=== PATIENT | male | born 1965 | race Caucasian/White ===

== ENCOUNTER 2017-11-01 16:10 | Inpatient (IN) | payer BC, MEDICARE | END 2017-11-08 16:12 | disposition home or self-care (01) | DRG 433 | LOC: D.MS 16:10 | DX: K70.40 Alcoholic hepatic failure without coma (principal); N17.9 Acute kidney failure, unspecified; E72.20 Disorder of urea cycle metabolism, unspecified; F17.203 Nicotine dependence unspecified, with withdrawal; E46 Unspecified protein-calorie malnutrition; R16.0 Hepatomegaly, not elsewhere classified; I10 Essential (primary) hypertension; K21.9 Gastro-esophageal reflux disease without esophagitis; F41.8 Other specified anxiety disorders; K70.10 Alcoholic hepatitis without ascites; F10.10 Alcohol abuse, uncomplicated ==

== ENCOUNTER → 2017-11-22 14:39 | Outpatient (CLI) | payer BC, MEDICARE ==
[2017-11-02 15:14] VITALS: BMI 42.2
[~2017-11-22 14:39] MED LIST: ATIVAN1 MG PO; CHRONULAC30 ML PO; COZAAR100 MG PO; HYDROCODONE-APA1 TAB PO; NICODERM C1 PATCH .3 TRANSDERM; PAXIL20 MG PO; PREDNISONE20 MG PO
[2017-11-22 15:07] LABS: BASOPHILS 0 % (0-2); EOSINOPHILS 0.1 % (0-7); HEMATOCRIT 36.8 % (42.0-54.0); HEMOGLOBIN 12.8 g/dL (13.5-17.5); IMMATURE GRANULOCYTES 0.4 % (0-5); LYMPHOCYTES 3.6 % (15-50); MCH 36.1 pg (26.0-34.0); MCHC 34.8 g/dL (31.0-37.0); MCV 103.7 fL (80.0-100.0); MEAN PLATELET VOLUME 11.6 fL (7.4-10.4); MONOCYTES 1.5 % (2-11); NEUTROPHILS 94.4 % (40-80); PLATELET COUNT 185 10x3/uL (130-400); RBC 3.55 10x6/uL (4.20-6.10); RDW 15.9 % (11.5-14.5); WBC 16.1 10x3/uL (4.8-10.8)
[2017-11-22 16:33] LABS: ALBUMIN 2.6 g/dL (3.4-5.0); ALKALINE PHOSPHATASE 291 U/L (46-116); ALT (SGPT) 157 U/L (10-68); CALC OSMOLALITY 266 mosm/kg (275-300); CALCIUM 8.9 mg/dL (8.5-10.1); CARBON DIOXIDE 23.7 mmol/L (21.0-32.0); CHLORIDE - SERUM 97 mmol/L (98-107); POTASSIUM - SERUM 4.6 mmol/L (3.5-5.1); PROTEIN - SERUM 6.8 g/dL (6.4-8.2); SODIUM 131 mmol/L (136-145); UREA NITROGEN 14 mg/dL (7-18); eGFR NON AFRICAN AMERICAN 83 mL/min (90-120)
[2017-11-22 16:40] LABS: GLUCOSE 147 mg/dL (74-106)
== END | disposition home or self-care (01) ==
LOC: D.LAB 14:39
PROVIDERS: Internal Medicine Gastroenterology
DX: K70.10 Alcoholic hepatitis without ascites (principal); R17 Unspecified jaundice; K72.90 Hepatic failure, unspecified without coma; R16.0 Hepatomegaly, not elsewhere classified

== ENCOUNTER → 2017-11-30 08:53 | Outpatient (CLI) | payer BC, MEDICARE ==
[2017-11-02 15:14] VITALS: BMI 42.2
[2017-11-30 11:30] LABS: BASOPHILS 0 % (0-2); EOSINOPHILS 0.5 % (0-7); HEMATOCRIT 38.1 % (42.0-54.0); HEMOGLOBIN 12.7 g/dL (13.5-17.5); IMMATURE GRANULOCYTES 0.6 % (0-5); LYMPHOCYTES 7.1 % (15-50); MCHC 33.3 g/dL (31.0-37.0); MCV 107.9 fL (80.0-100.0); MONOCYTES 4.5 % (2-11); NEUTROPHILS 87.3 % (40-80); PLATELET COUNT 168 10x3/uL (130-400); RBC 3.53 10x6/uL (4.20-6.10); RDW 15.1 % (11.5-14.5); WBC 11.1 10x3/uL (4.8-10.8)
[2017-11-30 11:33] LABS: ALBUMIN 2.7 g/dL (3.4-5.0); ALKALINE PHOSPHATASE 236 U/L (46-116); ALT (SGPT) 119 U/L (10-68); CALC OSMOLALITY 270 mosm/kg (275-300); CALCIUM 8.6 mg/dL (8.5-10.1); CARBON DIOXIDE 25.6 mmol/L (21.0-32.0); CHLORIDE - SERUM 98 mmol/L (98-107); GLUCOSE 174 mg/dL (74-106); POTASSIUM - SERUM 4.6 mmol/L (3.5-5.1); PROTEIN - SERUM 7.1 g/dL (6.4-8.2); SODIUM 133 mmol/L (136-145); UREA NITROGEN 14 mg/dL (7-18); eGFR NON AFRICAN AMERICAN 83 mL/min (90-120)
== END | disposition home or self-care (01) ==
LOC: D.LAB 08:53
PROVIDERS: Internal Medicine Gastroenterology
DX: K70.10 Alcoholic hepatitis without ascites (principal); R17 Unspecified jaundice; K72.90 Hepatic failure, unspecified without coma; R16.0 Hepatomegaly, not elsewhere classified

== ENCOUNTER → 2017-12-07 12:10 | Outpatient (CLI) | payer BC, MEDICARE ==
[2017-11-02 15:14] VITALS: BMI 42.2
[2017-12-07 12:38] LABS: BASOPHILS 0 % (0-2); EOSINOPHILS 0.1 % (0-7); HEMATOCRIT 37.2 % (42.0-54.0); HEMOGLOBIN 12.4 g/dL (13.5-17.5); IMMATURE GRANULOCYTES 0.3 % (0-5); LYMPHOCYTES 7.9 % (15-50); MCH 35.6 pg (26.0-34.0); MCHC 33.3 g/dL (31.0-37.0); MCV 106.9 fL (80.0-100.0); MEAN PLATELET VOLUME 10.9 fL (7.4-10.4); MONOCYTES 3.6 % (2-11); NEUTROPHILS 88.1 % (40-80); PLATELET COUNT 164 10x3/uL (130-400); RBC 3.48 10x6/uL (4.20-6.10); RDW 14.5 % (11.5-14.5); WBC 9.7 10x3/uL (4.8-10.8)
[2017-12-07 12:48] LABS: ALBUMIN 2.8 g/dL (3.4-5.0); ALKALINE PHOSPHATASE 183 U/L (46-116); ALT (SGPT) 83 U/L (10-68); BILIRUBIN - TOTAL 2.45 mg/dL (0.2-1.3); CALC OSMOLALITY 268 mosm/kg (275-300); CALCIUM 8.7 mg/dL (8.5-10.1); CARBON DIOXIDE 22.2 mmol/L (21.0-32.0); CHLORIDE - SERUM 98 mmol/L (98-107); GLUCOSE 186 mg/dL (74-106); POTASSIUM - SERUM 4.4 mmol/L (3.5-5.1); PROTEIN - SERUM 6.9 g/dL (6.4-8.2); SODIUM 132 mmol/L (136-145); UREA NITROGEN 11 mg/dL (7-18); eGFR NON AFRICAN AMERICAN 83 mL/min (90-120)
== END | disposition home or self-care (01) ==
LOC: D.LAB 12:10
PROVIDERS: Internal Medicine Gastroenterology
DX: K70.10 Alcoholic hepatitis without ascites (principal); R17 Unspecified jaundice; K72.90 Hepatic failure, unspecified without coma; R16.0 Hepatomegaly, not elsewhere classified

== ENCOUNTER → 2017-12-14 13:14 | Outpatient (CLI) | payer BC ==
[2017-11-02 15:14] VITALS: BMI 42.2
[2017-12-14 14:10] LABS: BASOPHILS 0.1 % (0-2); EOSINOPHILS 0.1 % (0-7); HEMATOCRIT 39.5 % (42.0-54.0); HEMOGLOBIN 12.9 g/dL (13.5-17.5); IMMATURE GRANULOCYTES 0.7 % (0-5); MCHC 32.7 g/dL (31.0-37.0); MEAN PLATELET VOLUME 10.9 fL (7.4-10.4); MONOCYTES 5.5 % (2-11); NEUTROPHILS 80.6 % (40-80); PLATELET COUNT 171 10x3/uL (130-400); RBC 3.69 10x6/uL (4.20-6.10); RDW 14.3 % (11.5-14.5); WBC 9.5 10x3/uL (4.8-10.8)
[2017-12-14 14:30] LABS: ALKALINE PHOSPHATASE 181 U/L (46-116); ALT (SGPT) 76 U/L (10-68); CALC OSMOLALITY 278 mosm/kg (275-300); CARBON DIOXIDE 24.5 mmol/L (21.0-32.0); CHLORIDE - SERUM 103 mmol/L (98-107); CREATININE - SERUM 0.8 mg/dL (0.6-1.3); GLUCOSE 149 mg/dL (74-106); POTASSIUM - SERUM 4.7 mmol/L (3.5-5.1); PROTEIN - SERUM 6.8 g/dL (6.4-8.2); SODIUM 138 mmol/L (136-145); UREA NITROGEN 13 mg/dL (7-18); eGFR NON AFRICAN AMERICAN > 90 mL/min (90-120)
== END | disposition home or self-care (01) ==
LOC: D.LAB 13:14
PROVIDERS: Internal Medicine Gastroenterology
DX: K70.10 Alcoholic hepatitis without ascites (principal); R17 Unspecified jaundice; K72.90 Hepatic failure, unspecified without coma; R16.0 Hepatomegaly, not elsewhere classified

== ENCOUNTER → 2017-12-28 12:20 | Outpatient (CLI) | payer BC ==
[2017-11-02 15:14] VITALS: BMI 42.2
[2017-12-28 12:51] LABS: ALBUMIN 2.9 g/dL (3.4-5.0); ALKALINE PHOSPHATASE 175 U/L (46-116); ALT (SGPT) 45 U/L (10-68); BASOPHILS 0.2 % (0-2); CALC OSMOLALITY 278 mosm/kg (275-300); CALCIUM 8.7 mg/dL (8.5-10.1); CARBON DIOXIDE 24.7 mmol/L (21.0-32.0); CHLORIDE - SERUM 103 mmol/L (98-107); CREATININE - SERUM 0.9 mg/dL (0.6-1.3); EOSINOPHILS 0.2 % (0-7); GLUCOSE 168 mg/dL (74-106); HEMATOCRIT 40.2 % (42.0-54.0); HEMOGLOBIN 13.1 g/dL (13.5-17.5); IMMATURE GRANULOCYTES 0.5 % (0-5); LYMPHOCYTES 16.1 % (15-50); MCH 34.5 pg (26.0-34.0); MCHC 32.6 g/dL (31.0-37.0); MCV 105.8 fL (80.0-100.0); MONOCYTES 7.7 % (2-11); NEUTROPHILS 75.3 % (40-80); PLATELET COUNT 186 10x3/uL (130-400); POTASSIUM - SERUM 4.5 mmol/L (3.5-5.1); PROTEIN - SERUM 7.3 g/dL (6.4-8.2); RDW 13.5 % (11.5-14.5); SODIUM 138 mmol/L (136-145); UREA NITROGEN 10 mg/dL (7-18); WBC 9.7 10x3/uL (4.8-10.8); eGFR NON AFRICAN AMERICAN > 90 mL/min (90-120)
== END | disposition home or self-care (01) ==
LOC: D.LAB 12:20
PROVIDERS: Internal Medicine Gastroenterology
DX: K70.10 Alcoholic hepatitis without ascites (principal); R17 Unspecified jaundice; K72.90 Hepatic failure, unspecified without coma; R16.0 Hepatomegaly, not elsewhere classified

== ENCOUNTER 2018-08-31 20:24 | Emergency (ER) | payer BC | END 2018-09-01 00:26 | disposition home or self-care (01) | LOC: D.ER 20:24 | DX: S50.812A Abrasion of left forearm, initial encounter (principal); S50.811A Abrasion of right forearm, initial encounter; S80.812A Abrasion, left lower leg, initial encounter; S80.811A Abrasion, right lower leg, initial encounter; V43.52XA Car driver injured in collision with other type car in traffic accident, initial encounter; Y93.89 Activity, other specified; Y92.410 Unspecified street and highway as the place of occurrence of the external cause; S16.1XXA Strain of muscle, fascia and tendon at neck level, initial encounter; S00.93XA Contusion of unspecified part of head, initial encounter; I10 Essential (primary) hypertension; F17.200 Nicotine dependence, unspecified, uncomplicated ==

== ENCOUNTER → 2018-10-25 14:15 | Outpatient (CLI) | payer BC ==
[2018-08-31 20:28] VITALS: BMI 37.9
[~2018-10-25 14:15] MED LIST changes: +OXYCONTIN10 MG PO; +ROBAXIN500 MG PO
== END | disposition home or self-care (01) ==
LOC: D.MRI 14:15
DX: M54.5 Low back pain (principal)

== ENCOUNTER 2020-05-28 16:07 | Emergency (ER) | payer MEDICARE, MEDICAID ==
[~2020-05-28] VITALS: Ht 188 cm; Wt 102.3 kg
[2020-05-28 16:10] VITALS: Ht 188 cm; Wt 102.3 kg
[2020-05-28 17:02] LABS: BASOPHILS 0.4 % (0-2); EOSINOPHILS 3.1 % (0-7); HEMATOCRIT 34.5 % (42.0-54.0); HEMOGLOBIN 11.5 g/dL (13.5-17.5); IMMATURE GRANULOCYTES 0.2 % (0-5); MCH 32.3 pg (26.0-34.0); MCHC 33.3 g/dL (31.0-37.0); MCV 96.9 fL (80.0-100.0); MEAN PLATELET VOLUME 10.3 fL (7.4-10.4); MONOCYTES 8.5 % (2-11); NEUTROPHILS 59.8 % (40-80); RBC 3.56 10x6/uL (4.20-6.10); RDW 15.1 % (11.5-14.5); WBC 4.6 10x3/uL (4.8-10.8)
[2020-05-28 17:04] LABS: PLATELET COUNT 135 10x3/uL (130-400)
[2020-05-28 17:24] LABS: CALC OSMOLALITY 287 mosm/kg (275-300); CALCIUM 8.2 mg/dL (8.5-10.1); CARBON DIOXIDE 22.6 mmol/L (21.0-32.0); CHLORIDE - SERUM 109 mmol/L (98-107); CREATININE - SERUM 0.8 mg/dL (0.6-1.3); GLUCOSE 129 mg/dL (74-106); POTASSIUM - SERUM 3.5 mmol/L (3.5-5.1); SODIUM 143 mmol/L (136-145); UREA NITROGEN 14 mg/dL (7-18); eGFR NON AFRICAN AMERICAN > 90 mL/min (90-120)
[2020-05-28 17:37] LABS: ALBUMIN 2.7 g/dL (3.4-5.0); ALKALINE PHOSPHATASE 144 U/L (30-120); ALT (SGPT) 22 U/L (10-68); CKMB 0.4 U/L (0.0-3.6); CREATINE KINASE 53 UL (21-232); MAGNESIUM - SERUM 1.9 mg/dL (1.8-2.4); PROTEIN - SERUM 6.3 g/dL (6.4-8.2)
[2020-05-28 17:38] LABS: TROPONIN-I < 0.017 ng/mL (0.000-0.060)
[2020-05-28 18:09] LABS: BILIRUBIN NEGATIVE (NEGATIVE); KETONE NEGATIVE (NEGATIVE); NITRITE NEGATIVE (NEGATIVE); UDS - AMPHET POSITIVE QUAL (NEGATIVE); UDS - BARB NEGATIVE QUAL (NEGATIVE); UDS - BENZO NEGATIVE QUAL (NEGATIVE); UDS - COCAINE NEGATIVE QUAL (NEGATIVE); UDS - OPIATE NEGATIVE QUAL (NEGATIVE); UDS - PCP NEGATIVE QUAL (NEGATIVE); UDS - THC POSITIVE QUAL (NEGATIVE); UROBILINOGEN 8 mg/dL (NORMAL)
[2020-05-28 18:37] VITALS: BP 112/70
== END 2020-05-28 18:39 | disposition home or self-care (01) ==
LOC: D.ER 16:07
PROVIDERS: Family Medicine
DX: S09.90XA Unspecified injury of head, initial encounter (principal); S01.01XA Laceration without foreign body of scalp, initial encounter; Y04.8XXA Assault by other bodily force, initial encounter; Y93.9 Activity, unspecified; Y92.9 Unspecified place or not applicable; I10 Essential (primary) hypertension; Z72.0 Tobacco use